=== PATIENT | female | born 1975 | race African-American/Black ===

== ENCOUNTER 2022-01-16 15:14 | Emergency (ER) | payer BC, SELFPAY ==
[2022-01-16 15:25] VITALS: BP 127/97; PULSE 89; RESP 19; TEMP 36.9; O2SAT 95; BMI 40.2
--- NOTE | 2022-01-16 15:38 | HMH.EDUTC ---
[facility] [place] Disposition Clinical Impression: COVID, Bronchitis Disposition: Home, Self-Care Condition on Discharge: Good Instructions: DI for COVID-19 (Suspected or Confirmed ), DI for Acute Bronchitis Additional Instructions: Start antibiotic today. Be sure to complete entire prescription even if feeling better Tylenol and ibuprofen as needed for pain or fever Humidifier/vaporizer/hot steamy shower Follow-up with primary care tomorrow. Follow-up immediately in the ER of the [facility] for new or worsening symptoms or no noticeable improvement over the next 48-72 hours. Stop smoking Inhaler every 4-6 hours as needed. Should help open airways improved cough, wheezing, shortness of breath Brice Deshpande will not cause drowsiness to use at bedtime to help stop cough so that she can get some sleep Start steroids today. Helps with inflammation therefore coughing and wheezing. Follow directions on package. Prescriptions: Albuterol Sulfate [Albuterol Sulfate Hfa] 1 puff IH Q6 PRN 14 Days #1 each PRN Reason: Wheezing Transmission Status: [facility] Benzonatate [Benzonatate 100mg cap] 100 mg PO BID PRN 7 Days #14 cap PRN Reason: Cough Transmission Status: Pending to [facility] predniSONE [Prednisone 20mg Tab] 20 mg PO BID #10 tab Transmission Status: Pending to [facility] Azithromycin [Zithromax 250mg tab] 250 mg PO DIRECTED #6 tab Transmission Status: Pending to [facility] Referrals: Provider,Referral, MD [Primary Care Provider] - Time of Disposition: 15:45 Medical Decision Making - Benito Inquiry Pt receiving controlled substance: No Vital Signs: 01/16/22 15:25 Temperature 98.4 F Temperature Source Oral Pulse Rate [Right Brachial] 89 Respiratory Rate 19 Blood Pressure [Right Arm] 127/97 H Blood Pressure Mean [Right Arm] 107 Blood Pressure Source [Right Arm] Automatic Cuff Blood Pressure Position [Right Arm] Sitting 02 Sat by Pulse Oximetry 95 Oxygen Delivery Method Room Air [facility] [place] HPI - General Chief complaint: Urgent Treatment Center Stated complaint: covid pos 01/09/22 cough and HUANG, dizzy Time Seen by Provider: 01/16/22 15:38 Mode of Arrival: Ambulatory Source of Information: Patient Limitations: No Limitations Description of Symptoms (Recalled from Triage Doc. by RN): PATIENT REPORTS SHE TESTED POSITIVE FOR COVID ON MONDAY. SHE STATES SHE STARTED FEELING BETTER, BUT STARTED FEELING BAD AGAIN YESTERDAY HEENT Symptoms (Recalled from RN notes): No Resp Symptoms (Recalled from RN notes): No Skin Symptoms (Recalled from RN notes): No MS Symptoms (Recalled from RN notes): No Functional Status (Recalled from RN notes): WNL - History of Present Illness Provider Complaint: 46 yr old female presents for huang,body aches,chills and cough. pt states she was coughing up clear sputum but it is now thick yellow sputum. pt states she tested positive for covid and improved but over the last 2 days symptoms have worsened - Related Data Previous Rx's Medication Instructions Recorded Albuterol Sulfate [Albuterol 1 puff IH Q6 PRN 14 Days #1 each 01/16/22 Sulfate Hfa] Azithromycin [Zithromax 250mg 250 mg PO DIRECTED #6 tab 01/16/22 tab] Benzonatate [Benzonatate 100mg 100 mg PO BID PRN 7 Days #14 cap 01/16/22 cap] predniSONE [Prednisone 20mg 20 mg PO BID #10 tab 01/16/22 Tab] Allergies Allergy/AdvReac Type Severity Reaction Status Date / Time Penicillins Allergy Verified 01/16/22 15:36 - Worker's Comp Is this a Worker's Comp case?: No H History - Hepatitis A Screen Attestation statement:: This patient has been screened for Hepatitis A risk factors. I have reviewed the patient's past medical history: Yes ROS Obtained: Yes Systems reviewed as appropriate & no additional complaints - Constitutional Constitutional: Reports system reviewed and no additional complaints, except as docu, Denies fever(s) - Eyes
[2022-01-16 15:44] VITALS: BP 127/97; PULSE 89; RESP 19; TEMP 36.9; O2SAT 95
== END 2022-01-16 15:50 | disposition home or self-care (01) ==
PROVIDERS: Emergency Provider Emergency Medicine
DX: U07.1 COVID-19 (principal); J40 Bronchitis, not specified as acute or chronic
CPT/HCPCS: 99212; G0463

== ENCOUNTER 2022-04-01 21:27 | Emergency (ER) | payer BC, SELFPAY ==
--- NOTE | 2022-04-01 21:41 | ECG_ITS ---
APPROVED REPORT Exam: Resting ECG HR:88 bpm ECG Measurements Heart Rate 88 AXES NE 212 P 70 QRSd 86 QRS 15 QT 340 T 45 QTc 386 Conclusion SINUS RHYTHM WITH FIRST DEGREE AV BLOCK SEPTAL MYOCARDIAL INFARCTION , PROBABLY OLD [40+ ms Q WAVE IN V1/V2] ABNORMAL ECG UNCONFIRMED REPORT Electronically signed by : Ankur Estrada MD 04/02/2022 06:56:13
[2022-04-01 21:50] VITALS: BMI 42.0
[2022-04-01 21:51] VITALS: BP 183/100; PULSE 88; RESP 18; TEMP 36.4; O2SAT 100; BMI 42.0
--- NOTE | 2022-04-01 22:13 | PC.NURSE ---
verbal orders fr4om for pepcid and reglan IVP, orders placed
[2022-04-01 22:16] VITALS: BP 163/83; PULSE 88; O2SAT 100
--- NOTE | 2022-04-01 22:18 | CT_ITS ---
PROCEDURE INFORMATION: Exam: CT Abdomen And Pelvis Without Contrast Exam date and time: 04/01/2022 10:28 PM Age: 46 years old Clinical indication: Abdominal pain; Flank; Right lower quadrant (rlq); Additional info: Abdominal pain / flank pain right side TECHNIQUE: Imaging protocol: Computed tomography of the abdomen and pelvis without contrast. Radiation optimization: All CT scans at this facility use at least one of these dose optimization techniques: automated exposure control; mA and/or kV adjustment per patient size (includes targeted exams where dose is matched to clinical indication); or iterative reconstruction. COMPARISON: No relevant prior studies available. FINDINGS: Liver: Normal. No mass. Gallbladder and bile ducts: Normal. No calcified stones. No ductal dilation. Pancreas: Normal. No ductal dilation. Spleen: Normal. No splenomegaly. Adrenal glands: Normal. No mass. Kidneys and ureters: Punctate non-obstructing left renal stone. No hydronephrosis. Stomach and bowel: Unremarkable. No obstruction. No mucosal thickening. Appendix: No evidence of appendicitis. Intraperitoneal space: Unremarkable. No free air. No significant fluid collection. Vasculature: Unremarkable. No abdominal aortic aneurysm. Lymph nodes: Unremarkable. No enlarged lymph nodes. Urinary bladder: Unremarkable as visualized. Reproductive: Unremarkable as visualized. Bones/joints: Unremarkable. No acute fracture. Soft tissues: Unremarkable. IMPRESSION: No acute findings.
[2022-04-01 22:24] LABS: Microscopic, Urine URINE MICROSCOPIC (MICROSCOPIC)
[2022-04-01 22:25] LABS: Basophils # 0.1 K/mm3 (0-0.2); Basophils % 1.3 % (0.1-2.0); Eosinophils # 0.2 K/mm3 (0.0-0.4); Eosinophils % 1.8 % (0.1-12.0); Hemoglobin 13.3 g/dL (12.2-16.2); Lymphocytes # 1.8 K/mm3 (0.7-4.5); Lymphocytes % 16.6 % (10-50); Mean Corpuscular HGB Conc 32.6 g/dL (31.8-35.4); Mean Corpuscular Hemoglobin 29.2 pg (27.0-31.2); Mean Corpuscular Volume 89.7 fl (81-99); Mean Platelet Volume 7.4 fl (7.4-10.4); Monocytes # 0.3 K/mm3 (0.1-1.0); Monocytes % 2.9 % (1.7-9.3); Neutrophils # 8.2 K/mm3 (1.8-7.8); Neutrophils % 77.4 % (37.0-80.0); Platelet Count 396 K/mm3 (142-424); Red Blood Count 4.57 M/mm3 (4.20-5.40); White Blood Count 10.5 K/mm3 (4.8-10.8)
[2022-04-01 22:26] LABS: Appearance,Urine CLEAR (Clear); Bilirubin,Urine Negative (Negative); Blood, Urine Negative (Negative); Color,Urine YELLOW (Yellow); Glucose,Urine (UA) Negative (Negative); Ketones,Urine TRACE (Negative); Leukocyte Esterase,Urine Negative (Negative); Nitrate,Urine Negative (Negative); PH,Urine 7.5 (5.0-8.5); Protein,Urine Negative (Negative); Specific Gravity, Urine 1.015 (1.005-1.030)
--- NOTE | 2022-04-01 22:30 | PC.NURSE ---
d/t pt's 22g PIV to MD RAYSHAWN ok to change order to CT A/P wo contrast. Radiology will change order.
[2022-04-01 22:31] LABS: Alanine Aminotransferase 159 U/L (12-78); Albumin Level 4.2 g/dl (3.5-5.0); Albumin/Globulin Ratio 1.2 (1.1-1.8); Alkaline Phosphatase 128 U/L (38-126); Amylase 104 U/L (30-110); Anion Gap 13.8 mEq/L (5-15); Aspartate Amino Transferase 205 U/L (14-36); Bilirubin,Total 1.1 mg/dl (0.2-1.3); Blood Urea Nitrogen 12 mg/dl (7-17); Calcium 9.2 mg/dl (8.4-10.2); Carbon Dioxide 29 mmol/L (22.0-30.0); Chloride 96 mmol/L (98-107); Creatinine Clearance Estimated 64 mL/min (50-200); Estimated Glomerular Filt Rate 78 ml/min (>60); GFR (African American) 94 ML/MIN (>60); Globulin 3.4 g/dL (1.3-3.2); Glucose 134 mg/dl (74-100); Lipase 368 U/L (23-300); Potassium 3.8 mmoL/L (3.5-5.1); Sodium 135 mmol/L (136-145); Total Protein,Serum 7.6 g/dl (6.3-8.2)
[2022-04-01 22:35] LABS: Bacteria,Urine Trace /lpf; Mucus,Urine 1+ /lpf; Squamous Epithelial Cell,Urine Occasional #/hpf (0-5); WBC,Urine Occasional #/hpf (0-3)
[2022-04-01 22:38] LABS: C-Reactive Protein 13.2 mg/L (0-4)
[2022-04-01 22:51] LABS: Procalcitonin 0.054 ng/mL (0.0-2.0)
[2022-04-01 23:16] LABS: Erythrocyte Sedimentation Rate 40 mm/hr (0-20)
--- NOTE | 2022-04-01 23:23 | HMH.EDABDPAI ---
Discharge Plan Disposition Patient Disposition: Home, Self-Care Chief Complaint: Abdominal Pain Prescriptions Prescriptions: No Action No Known Home Medications Referrals Follow up/Referrals: Provider,Referral, [Primary Care Provider] - See instructions Clinical Impressions Clinical Impression: Abdominal pain Instructions Patient Instructions: DI for Acute Abdominal Pain Discharge ED Provider: Marcelino Carrillo Abdominal Pain HPI General Chief Complaint: Abdominal Pain Stated Complaint: back pain, VA Time Seen by Provider: 04/01/22 22:05 Mode of Arrival: Wheelchair Source of Information: Patient, Spouse and Medical Record Limitations: No Limitations Description of Symptoms (Recalled from ER Triage Doc. by RN): Pt c/o upper epigastric pain that radiates into her back with nausea. States it has been going on since Monday and she has been unable to eat. States that the pain got better throughout the week but tonight at 1900 on the ride home she got severely nauseaus with abdominal pain and back pain. History of Present Illness HPI narrative: acute upper abd pain with rad to back - has vomiting - has had sx since earlier in week MD complaint: abdominal pain Onset (ago): day(s) Consistency: intermittent Location: RUQ Severity: moderate Quality: sharp Radiation: RUQ Associated symptoms: nausea and vomiting Related Data Home Medications Medication Instructions Recorded Confirmed No Known Home Medications 04/01/22 04/01/22 Allergies Allergy/AdvReac Type Severity Reaction Status Date / Time Penicillins Allergy Verified 01/16/22 15:36 PFSH PFSH Surgical History (Updated 04/01/22 @ 21:56 by Ana Cristina Ya RN) Hx of tubal ligation Social History (Updated 04/01/22 @ 21:57 by Ana Cristina Ya RN) Smoking Status: Never smoker alcohol intake: never current occupational status: employed Travel in the last 8 weeks: None ROS Obtained: Yes All systems reviewed & no additional complaints except as documented Physical Exam General General appearance: alert Head Head exam: normocephalic Eye Eye exam: Present PERRL and EOMI; Absent scleral icterus ENT ENT exam: Present mucous membranes moist Neck Neck exam: Present trachea midline Respiratory Respiratory exam: Present normal lung sounds bilaterally; Absent respiratory distress Cardiovascular Cardiovascular exam: Present regular rate Abdominal Exam Abdominal exam: Present soft, tenderness and Del [place]'s sign Abdominal tenderness: Present RUQ and moderate Extremities Exam Extremities exam: Present full ROM Neurological Exam Neurological exam: Present alert, oriented X3 and CN II-XII intact Psychiatric Psychiatric exam: Present normal affect Skin Skin exam: Absent rash Medical Decision Making Medical Records Medical records reviewed: Yes I reviewed the patient's medical records. Benito Inquiry Pt receiving controlled substance: No Vital Signs: 04/01/22 21:51 04/01/22 22:16 Temperature 97.6 F Temperature Source Oral Pulse Rate 88 Pulse Rate [Apical] 88 Respiratory Rate 18 Blood Pressure 163/83 H Blood Pressure [Right Arm] 183/100 H Blood Pressure Mean 109 Blood Pressure Mean [Right Arm] 127 Blood Pressure Source [Right Arm] Automatic Cuff Blood Pressure Position [Right Arm] Sitting 02 Sat by Pulse Oximetry 100 100 Oxygen Delivery Method Room Air Room Air Lab Data Lab results reviewed: Yes I reviewed the patient's lab results. Lab Results 04/01/22 22:05: WBC 10.5, RBC 4.57, Hgb 13.3, Hct 41.0, MCV 89.7, MCH 29.2, MCHC 32.6, RDW 14.0, Plt Count 396, MPV 7.4, Neut % (Auto) 77.4, Lymph % (Auto) 16.6, [place] % (Auto) 2.9, Eos % (Auto) 1.8, Baso % (Auto) 1.3, Neut # (Auto) 8.2 H, Lymph # (Auto) 1.8, [place] # (Auto) 0.3, Eos # (Auto) 0.2, Baso # (Auto) 0.1 04/01/22 22:05: Sodium 135 L, Potassium 3.8, Chloride 96 L, Carbon Dioxide 29, Anion Gap 13.8, BUN 12, Creatinine 0.80, Estimated Creat Clear 64, Est
[2022-04-01 23:51] VITALS: BP 159/78; PULSE 78; RESP 18; TEMP 36.6; O2SAT 98
== END 2022-04-01 23:59 | disposition home or self-care (01) ==
PROVIDERS: Emergency Provider Emergency Medicine
DX: R10.9 Unspecified abdominal pain (principal); M54.9 Dorsalgia, unspecified; Z88.0 Allergy status to penicillin
CPT/HCPCS: 74176; 80053; 81001; 82150; 83690; 84145; 85025; 85651; 86140; 93005; 96374; 96375; 99284

== ENCOUNTER → 2022-04-12 08:31 | Outpatient (CLI) | payer BC, SELFPAY ==
--- NOTE | 2022-04-12 08:32 | US_ITS ---
FINAL REPORT CLINICAL HISTORY: right upper quadrant pain FINDINGS: Ultrasound images of the right upper quadrant were obtained. The liver parenchyma is normal in echogenicity. The gallbladder is well visualized and the wall appears normal. There are multiple gallstones. The common duct is normal. Limited images of the right kidney are unremarkable. IMPRESSION: Cholelithiasis. Reviewed, Interpreted and Dictated by Bar Gann III, MD Transcribed by Mook Santana Authenticated and [facility]
== END ==
PROVIDERS: PCP Nurse Practitioner Family; Visit Provider Nurse Practitioner Family
DX: R10.11 Right upper quadrant pain (principal)
CPT/HCPCS: 76705

== ENCOUNTER → 2022-05-03 13:18 | Outpatient (CLI) | payer BC, SELFPAY ==
[2022-05-03 14:11] LABS: Basophils # 0.1 K/mm3 (0-0.2); Basophils % 1.7 % (0.1-2.0); Eosinophils # 0.2 K/mm3 (0.0-0.4); Eosinophils % 2.6 % (0.1-12.0); Hematocrit 38.5 % (37.0-47.0); Hemoglobin 12.4 g/dL (12.2-16.2); Lymphocytes # 1.9 K/mm3 (0.7-4.5); Lymphocytes % 28.1 % (10-50); Mean Corpuscular HGB Conc 32.2 g/dL (31.8-35.4); Mean Corpuscular Hemoglobin 29.3 pg (27.0-31.2); Mean Corpuscular Volume 90.9 fl (81-99); Mean Platelet Volume 7.4 fl (7.4-10.4); Monocytes # 0.2 K/mm3 (0.1-1.0); Monocytes % 3.5 % (1.7-9.3); Neutrophils # 4.4 K/mm3 (1.8-7.8); Neutrophils % 64.2 % (37.0-80.0); Platelet Count 339 K/mm3 (142-424); Red Blood Count 4.24 M/mm3 (4.20-5.40); Red Cell Distribution Width 13.6 % (11.5-17.5); White Blood Count 6.9 K/mm3 (4.8-10.8)
[2022-05-03 15:13] LABS: Alanine Aminotransferase 18 U/L (12-78); Albumin Level 3.7 g/dl (3.5-5.0); Albumin/Globulin Ratio 1.3 (1.1-1.8); Alkaline Phosphatase 77 U/L (38-126); Amylase 76 U/L (30-110); Aspartate Amino Transferase 27 U/L (14-36); Bilirubin,Total 0.2 mg/dl (0.2-1.3); Blood Urea Nitrogen 10 mg/dl (7-17); Carbon Dioxide 29 mmol/L (22.0-30.0); Chloride 100 mmol/L (98-107); Estimated Glomerular Filt Rate 91 ml/min (>60); GFR (African American) 110 ML/MIN (>60); Globulin 2.8 g/dL (1.3-3.2); Glucose 115 mg/dl (74-100); Lipase 85 U/L (23-300); Sodium 138 mmol/L (136-145); Total Protein,Serum 6.5 g/dl (6.3-8.2)
== END ==
PROVIDERS: PCP Emergency Medicine; Visit Provider Surgery
DX: R10.11 Right upper quadrant pain (principal)
CPT/HCPCS: 36415; 80053; 82150; 83690; 85025

== ENCOUNTER 2022-05-09 06:02 | Day surgery (SDC) | payer BC, SELFPAY ==
[2022-04-27 14:46] VITALS: BMI 23.4
--- NOTE | 2022-05-05 13:21 | SUR.PREOP ---
Patient notified of time change and agreed to come in at 6am
[2022-05-09] VITALS (11 sets, daily range): BP systolic 140–159; BP diastolic 76–96; PULSE 86–110; RESP 16–99; TEMP 36.3–43; O2SAT 97–100
[2022-05-09 06:26] LABS: Urine Pregnancy, HCG Qual. Negative (Negative)
--- NOTE | 2022-05-09 08:27 | XR_ITS ---
FINAL REPORT CLINICAL HISTORY: CHOLANGIOGRAM IN OR fluoro time: .16 FINDINGS: Fluoroscopic guidance was provided for the operating services. A single spot film was provided. 16 seconds of fluoroscopy time was utilized. IMPRESSION: 16 seconds of fluoroscopy time. Reviewed, Interpreted and Dictated by Bar Gann III, MD Transcribed by Mook Santana Authenticated and [facility]
--- NOTE | 2022-05-09 08:56 | EXP.OP.NOTE ---
Date of procedure: 05/09/22 Pre-op Diagnosis:: Symptomatic gallstones Post-op Diagnosis:: Same Procedure performed:: Laparoscopic cholecystectomy with intraoperative cholangiogram Surgeon:: Bar Hanson MD [employer]:: Other Anesthesia: GETA Estimated blood loss (mL): 20 Clinical Note:: Patient is a very pleasant 46-year-old female referred by Dr. Carrillo's office for gallbladder.? Retrospectively she has had some symptoms occurring throughout this year consistent with biliary colic which have usually been self-limited.? She had an episode on 04/01/2022 at which time she had developed nausea and vomiting while in [place].? This was followed with severe epigastric pain radiating around to the bilateral upper quadrants and into her right back.? Patient had tried to take some omeprazole and apple cider vinegar at home prior to presenting to the emergency department which is usually relieved her symptoms but these did not.? She states that this was quite severe resembling labor pain.? In the emergency department she underwent an evaluation including blood work and CT scan.? CT scan revealed no acute findings.? Blood work was significant for AST 205, ALT 159, alkaline phosphatase 128, lipase 368, amylase normal.? Gallbladder was suspected and she was able to be managed as an outpatient.? She underwent outpatient ultrasound which reveals cholelithiasis .? Common bile duct is normal.? Of note, for the past few months patient has had occasional development of itching rash.? She develops redness near the axilla and upper extremities.? She has done Internet search to attempt to correlate this with her gallbladder and had come across diagnosis of sclerosing cholangitis.? I did ask her about history or symptoms of inflammatory bowel disease.? She has undergone a colonoscopy relatively recently for some bowel issues but no known diagnosis of any inflammatory bowel disease. Patient was seen and examined in the office.I discussed the options with her.? I did feel that proceeding with cholecystectomy would be warranted.? Likely consider cholangiogram given her associated symptoms and findings on liver function tests.? I did discuss with her the diagnosis of sclerosing cholangitis.? Ultimately gastroenterology evaluation might be reasonable, particularly if her symptoms persist. Of note, preoperative recheck of liver function test showed normalization. Operative findings:: She had a somewhat distended gallbladder with small gallstones. There was some fatty infiltration of the liver. Cholangiogram unremarkable preliminarily. Operative note:: Patient was taken to the operating room. She was given preoperative intravenous antibiotics. In the operating room she was placed in a supine position. General anesthesia was induced via endotracheal tube. Abdomen was prepped and draped in the standard surgical fashion. Subumbilical skin incision was made and while performing abdominal wall lift Veress needle was inserted. CO2 pneumoperitoneum was achieved to 15 mmHg. 11 mm optical trocar was inserted at the umbilicus. She was positioned in reverse Trendelenburg left side down. A couple of 5 mm trochars were inserted in the right upper abdomen. 10 mm trocar was inserted in the epigastrium. There was some mild fatty infiltration of the liver. Gallbladder was grasped retracted anteriorly over the dome of the liver. Infundibulum/Hunt's pouch of the gallbladder was retracted anterior laterally. Blunt dissection was carried out at the neck of the gallbladder bluntly incising the visceral peritoneum. Cystic duct and cystic artery were clearly identified and isolated. Cystic duct was clipped proximal to the gallbladder. Through a 1 to 2 mm incision in the right subcostal area the taut cholangiocatheter introduced was inserted. Cholangiocatheter was inserted through the introducer and small ductotomy was made in the cystic duct. Cholangiocatheter was inserted into the cystic duct and sec
--- NOTE | 2022-05-09 09:05 | EXP.ANES.CKL ---
[facility] Medical History (Updated 05/09/22 @ 06:26 by Julissa Orozco RN) Allergies Gallbladder disease History of COVID-19 History of gastroesophageal reflux (GERD) Sinus headache Urinary tract infection Surgical History Hx of tubal ligation Family History Other Family history of breast cancer in mother Family history of cancer Family history of colon cancer in father Family history of diabetes mellitus type II Family history of hypertension Family history of myocardial infarction Family history of sickle cell trait Family history of stroke Social History Smoking Status: Never smoker alcohol intake: never substance use type: denies use current occupational status: employed Travel in the last 8 weeks: None [facility] Anesthesia Checklist Patient Identification Patient Identification: Arm Band and Family Structural Data Admitted From: Direct Admit Planned Operative Procedure/s: lap chichi Consent for Planned Operative Procedure(s) Verified: Yes Verified Documents: Surgical Consent NPO Status Verified Time NPO: 00:00 Additional verifications Patient : No Anesthesia Reactions: No Hx Blood Transfusions: No Blood Transfusion Reaction: No Cephalosporin Allergy: No Airway Assessment C-Spine Mobility Assessed: Yes TMJ Mobility Assessed: Yes Dentition: Poor Dentition Neurological Assessment Level of Consciousness: Awake, Alert, Appropriate and Follows Commands Hx Seizures: No Numbness or tingling in extremities: No Genitourinary Assessment 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
--- NOTE | 2022-05-09 09:08 | P.PNANES_ITS ---
[facility] Anesthesia Record Part I Anesthesia Record I Intake, IV Amount: 850 Estimated blood loss (mL): 3 Urine output (mL): 0 Blood Products used (#): none Blood Pressure: 146/88 SaO2: 100 Pulse Rate: 104 Respiratory Rate: 16 Temperature: 98.8 F Patient is:: Drowsy and Stable Stable to PACU at:: 09:01
[2022-05-10 07:45] VITALS: BP 159/89; PULSE 109; TEMP 36.3
--- NOTE | 2022-05-10 07:45 | P.PNANES_ITS ---
[facility] Anesthesia Record Part II Anesthesia Record Part II Discharge Time: 09:28 Destination: Surgical Day Care (OP Surgery) PACU nurse assessment reviewed?: Yes Patient Condition:: Good Anesthesia Complications:: None Swallowing reflex intact?: Yes Cyanosis?: No Blood Pressure: 159/89 Pulse Rate: 109 Temperature: 97.4 F Mental Status: Alert & Oriented Pain level:: 6 Nausea and/or vomitting:: None Intake, IV Amount: 0
== END 2022-05-09 10:41 | disposition home or self-care (01) ==
PROVIDERS: PCP Nurse Practitioner Family; Visit Provider Surgery
PROC: 0FT44ZZ Resection of Gallbladder, Percutaneous Endoscopic Approach (ICD-10-PCS; CPT 47562; principal; 2022-05-09 07:30)
DX: K80.10 Calculus of gallbladder with chronic cholecystitis without obstruction (principal); Z79.899 Other long term (current) drug therapy
CPT/HCPCS: 47563; 74018; 76000; 81025; 88304; 96374; J2405; Q9967

== ENCOUNTER 2022-06-27 16:07 | Emergency (ER) | payer BC, SELFPAY ==
[2022-06-27 19:30] VITALS: BP 0/0; PULSE 0; RESP 0; TEMP -17.7; TEMP 0
== END 2022-06-27 19:32 | disposition home or self-care (01) ==
LOC: UTC 16:10
PROVIDERS: Emergency Provider Nurse Practitioner; PCP Emergency Medicine
DX: Z53.21 Procedure and treatment not carried out due to patient leaving prior to being seen by health care provider (principal)

== ENCOUNTER → 2022-10-06 06:22 | Outpatient (CLI) | payer BC, SELFPAY | PROVIDERS: PCP Nurse Practitioner Family; Visit Provider Nurse Practitioner Family | DX: R10.9 Unspecified abdominal pain (principal) ==

== ENCOUNTER → 2022-10-06 09:12 | Outpatient (CLI) | payer BC, SELFPAY ==
[2022-10-06 16:25] LABS: Basophils # 0.1 K/mm3 (0-0.2); Eosinophils # 0.1 K/mm3 (0.0-0.4); Eosinophils % 1.9 % (0.1-12.0); Hematocrit 40.9 % (37.0-47.0); Hemoglobin 12.9 g/dL (12.2-16.2); Lymphocytes # 2.3 K/mm3 (0.7-4.5); Lymphocytes % 30.5 % (10-50); Mean Corpuscular HGB Conc 31.5 g/dL (31.8-35.4); Mean Corpuscular Hemoglobin 28.1 pg (27.0-31.2); Mean Corpuscular Volume 89.2 fl (81-99); Mean Platelet Volume 9.2 fl (7.4-10.4); Monocytes # 0.5 K/mm3 (0.1-1.0); Monocytes % 6.2 % (1.7-9.3); Neutrophils # 4.5 K/mm3 (1.8-7.8); Neutrophils % 60.4 % (37.0-80.0); Platelet Count 383 K/mm3 (142-424); Red Blood Count 4.58 M/mm3 (4.20-5.40); Red Cell Distribution Width 14.2 % (11.5-17.5); White Blood Count 7.5 K/mm3 (4.8-10.8)
[2022-10-06 16:47] LABS: Hemoglobin A1C 5.5 % (4.0-6.0)
[2022-10-06 16:54] LABS: Alanine Aminotransferase 16 U/L (12-78); Albumin Level 4.2 g/dl (3.5-5.0); Albumin/Globulin Ratio 1.4 (1.1-1.8); Alkaline Phosphatase 75 U/L (38-126); Anion Gap 11.8 mEq/L (5-15); Aspartate Amino Transferase 23 U/L (14-36); Bilirubin,Total 0.4 mg/dl (0.2-1.3); Blood Urea Nitrogen 13 mg/dl (7-17); Calcium 9.2 mg/dl (8.4-10.2); Carbon Dioxide 25 mmol/L (22.0-30.0); Chloride 104 mmol/L (98-107); Chol/HDL Ratio 3.6 (1-3.5); Cholesterol 200 mg/dl (140-200); Estimated Glomerular Filt Rate 78 ml/min (>60); GFR (African American) 94 ML/MIN (>60); Globulin 3.1 g/dL (1.3-3.2); Glucose 90 mg/dl (74-100); HDL Cholesterol 56 mg/dl (40-60); Potassium 4.8 mmoL/L (3.5-5.1); Sodium 136 mmol/L (136-145); Total Protein,Serum 7.3 g/dl (6.3-8.2); Triglycerides 86 mg/dl (30-150); VLDL Cholesterol 17 mg/dL (0-40)
[2022-10-06 17:06] LABS: Direct LDL Cholesterol 115.69 mg/dL (100-129)
== END ==
PROVIDERS: PCP Nurse Practitioner Family; Visit Provider Nurse Practitioner Family
DX: R10.9 Unspecified abdominal pain (principal)
CPT/HCPCS: 80053; 80061; 83036; 84443; 85025

== ENCOUNTER → 2022-12-06 14:30 | Outpatient (CLI) | payer BC, SELFPAY | PROVIDERS: PCP Nurse Practitioner Family; Visit Provider Nurse Practitioner Family | DX: N39.0 Urinary tract infection, site not specified (principal); B96.29 Other Escherichia coli [E. coli] as the cause of diseases classified elsewhere | CPT/HCPCS: 87086; 87088; 87186 ==

== ENCOUNTER → 2023-04-17 14:50 | Outpatient (CLI) | payer BC, SELFPAY | PROVIDERS: PCP Student in an Organized Health Care Education/Training Program; Visit Provider Student in an Organized Health Care Education/Training Program | DX: R39.9 Unspecified symptoms and signs involving the genitourinary system (principal) | CPT/HCPCS: 87086 ==

== ENCOUNTER 2023-10-23 11:42 | Outpatient (CLI) | payer BC, SELFPAY ==
[2023-10-23 18:23] LABS: Basophils # 0.1 K/mm3 (0-0.2); Basophils % 1.3 % (0.1-2.0); Eosinophils # 0.2 K/mm3 (0.0-0.4); Eosinophils % 2.5 % (0.1-12.0); Hematocrit 42.5 % (37.0-47.0); Hemoglobin 13.6 g/dL (12.2-16.2); Lymphocytes # 2.4 K/mm3 (0.7-4.5); Lymphocytes % 29.9 % (10-50); Mean Corpuscular HGB Conc 31.9 g/dL (31.8-35.4); Mean Corpuscular Volume 90.9 fl (81-99); Mean Platelet Volume 8.4 fl (7.4-10.4); Monocytes # 0.4 K/mm3 (0.1-1.0); Monocytes % 4.4 % (1.7-9.3); Neutrophils # 4.9 K/mm3 (1.8-7.8); Neutrophils % 61.9 % (37.0-80.0); Platelet Count 339 K/mm3 (142-424); Red Blood Count 4.67 M/mm3 (4.20-5.40); Red Cell Distribution Width 13.9 % (11.5-17.5)
[2023-10-23 18:53] LABS: Alanine Aminotransferase 23 U/L (12-78); Albumin Level 4.3 g/dl (3.5-5.0); Albumin/Globulin Ratio 1.3 (1.1-1.8); Alkaline Phosphatase 91 U/L (38-126); Anion Gap 14.5 mEq/L (5-15); Aspartate Amino Transferase 29 U/L (14-36); Bilirubin,Total 0.4 mg/dl (0.2-1.3); Blood Urea Nitrogen 8 mg/dl (7-17); Carbon Dioxide 23 mmol/L (22.0-30.0); Chloride 105 mmol/L (98-107); Chol/HDL Ratio 2.5 (1-3.5); Cholesterol 222 mg/dl (140-200); Estimated Glomerular Filt Rate 90 ml/min (>60); GFR (African American) 109 ML/MIN (>60); Globulin 3.2 g/dL (1.3-3.2); Glucose 107 mg/dl (74-100); HDL Cholesterol 90 mg/dl (40-60); Potassium 4.5 mmoL/L (3.5-5.1); Sodium 138 mmol/L (136-145); Total Protein,Serum 7.5 g/dl (6.3-8.2); Triglycerides 122 mg/dl (30-150); VLDL Cholesterol 24 mg/dL (0-40)
[2023-10-23 19:04] LABS: C-Reactive Protein 26.7 mg/L (0-4); Direct LDL Cholesterol 104.14 mg/dL (100-129)
[2023-10-23 19:14] LABS: Erythrocyte Sedimentation Rate 76 mm/hr (0-20)
[2023-10-23 19:15] LABS: 25-OH Vitamin D, Total 26.3 ng/mL (30-100)
[2023-10-23 19:28] LABS: Thyroid Stimulating Hormone 0.65 uIU/mL (0.465-4.68)
[2023-10-23 19:47] LABS: Vitamin B12 788 pg/mL (239-931)
[2023-10-23 20:24] LABS: Iron 111 ug/dL (37-170)
[2023-10-23 20:35] LABS: Total Iron Binding Capacity 289 ug/dL (265-497)
[2023-10-23 21:01] LABS: Ferritin 25.8 ng/ml (6.24-137)
[2023-10-25 14:13] LABS: Anti-Centromere B Antibodies <0.2 AI (0.0-0.9); Anti-Cyclic Citrullinated Pept 6 units (0-19); Anti-DNA (DS) Ab Qn <1 IU/mL (0-9); Anti-Jo-1 <0.2 AI (0.0-0.9); Anti-Smith Antibody <0.2 AI (0.0-0.9); Antichromatin Antibodies <0.2 AI (0.0-0.9); Antiscleroderma-70 Antibodies <0.2 AI (0.0-0.9); RNP Antibodies <0.2 AI (0.0-0.9); Sjogren's Anti-SS-A 0.2 AI (0.0-0.9); Sjogren's Anti-SS-B <0.2 AI (0.0-0.9)
== END 2023-10-23 23:59 | disposition home or self-care (01) ==
LOC: LAB.DROPOF 10-24 11:42
PROVIDERS: PCP Physician Assistant; Visit Provider Physician Assistant
DX: R60.9 Edema, unspecified (principal); E55.9 Vitamin D deficiency, unspecified; Z68.41 Body mass index [BMI] 40.0-44.9, adult
CPT/HCPCS: 80053; 80061; 82306; 82607; 82728; 83540; 83550; 84443; 85025; 85651; 86140; 86200; 86225; 86235; 86431

== ENCOUNTER 2024-01-24 16:18 | Outpatient (CLI) | payer BC, SELFPAY ==
--- NOTE | 2024-01-24 16:25 | XR_ITS ---
PROCEDURE INFORMATION: Exam: XR Right Foot Exam date and time: 01/24/2024 4:26 PM Age: 48 years old Clinical indication: Pain; Foot; Bilateral; Additional info: Bilateral bunions TECHNIQUE: Imaging protocol: Radiologic exam of the right foot. Views: 3 or more views. Total images: 3 COMPARISON: No relevant prior studies available. FINDINGS: Bones/joints: No evidence of acute fracture or dislocation. Mild hallux valgus deformity. Soft tissues: Soft tissues are within normal limits. IMPRESSION: 1. No evidence of acute fracture or dislocation. 2. Mild hallux valgus deformity.
--- NOTE | 2024-01-24 16:25 | XR_ITS ---
PROCEDURE INFORMATION: Exam: XR Left Foot Exam date and time: 01/24/2024 4:26 PM Age: 48 years old Clinical indication: Pain; Foot; Bilateral; Additional info: Bilateral bunions TECHNIQUE: Imaging protocol: Radiologic exam of the left foot. Views: 3 or more views. Total images: 3 COMPARISON: No relevant prior studies available. FINDINGS: Bones/joints: No evidence of acute fracture or dislocation. Soft tissues: Soft tissues are within normal limits. IMPRESSION: No evidence of acute fracture or dislocation.
== END 2024-01-24 23:59 | disposition home or self-care (01) ==
LOC: RAD 16:21
PROVIDERS: PCP Physician Assistant; Visit Provider Physician Assistant
DX: M21.611 Bunion of right foot (principal); M21.612 Bunion of left foot
CPT/HCPCS: 73630

== ENCOUNTER 2024-02-08 10:14 | Outpatient (CLI) | payer BC, SELFPAY | END 2024-02-08 23:59 | disposition home or self-care (01) | LOC: LAB.DROPOF 02-09 08:22 | PROVIDERS: PCP Student in an Organized Health Care Education/Training Program; Visit Provider Student in an Organized Health Care Education/Training Program | DX: R05.9 Cough, unspecified (principal) | CPT/HCPCS: 87635 ==

== ENCOUNTER 2024-05-07 10:20 | Outpatient (CLI) | payer BC, SELFPAY ==
--- NOTE | 2024-05-07 10:23 | XR_ITS ---
PROCEDURE INFORMATION: Exam: XR Right Calcaneus Exam date and time: 05/07/2024 10:25 AM Age: 48 years old Clinical indication: Pain; Foot; Bilateral; Additional info: Heel pain TECHNIQUE: Imaging protocol: Radiologic exam of the right calcaneus. Views: 2 or more views. COMPARISON: CR XR CALCANEUS RT MIN 2V 05/07/2024 10:25 AM FINDINGS: Bones/joints: There is no evidence of acute fracture.There is no evidence of malalignment or dislocation. Soft tissues: Normal. IMPRESSION: There is no evidence of acute fracture.There is no evidence of malalignment or dislocation.
--- NOTE | 2024-05-07 10:23 | XR_ITS ---
PROCEDURE INFORMATION: Exam: XR Right Ankle Exam date and time: 05/07/2024 10:25 AM Age: 48 years old Clinical indication: Pain; Ankle; Bilateral; Additional info: Ankle pain TECHNIQUE: Imaging protocol: Radiologic exam of the right ankle. Views: 3 or more views. COMPARISON: CR XR ANKLE WT BEARING RT MIN 3V 05/07/2024 10:25 AM FINDINGS: Bones/joints: There is no evidence of acute fracture.There is no evidence of malalignment or dislocation. Osteophyte formation off the dorsal aspect of the talus Soft tissues: Normal. IMPRESSION: There is no evidence of acute fracture.There is no evidence of malalignment or dislocation.
--- NOTE | 2024-05-07 10:23 | XR_ITS ---
PROCEDURE INFORMATION: Exam: XR Left Calcaneus Exam date and time: 05/07/2024 10:25 AM Age: 48 years old Clinical indication: Pain; Foot; Bilateral; Additional info: Heel pain TECHNIQUE: Imaging protocol: Radiologic exam of the left calcaneus. Views: 2 or more views. COMPARISON: CR XR CALCANEUS LT MIN 2V 05/07/2024 10:25 AM FINDINGS: Bones/joints: There is no evidence of acute fracture.There is no evidence of malalignment or dislocation. Soft tissues: Normal. IMPRESSION: There is no evidence of acute fracture.There is no evidence of malalignment or dislocation.
--- NOTE | 2024-05-07 10:23 | XR_ITS ---
PROCEDURE INFORMATION: Exam: XR Left Foot Exam date and time: 05/07/2024 10:25 AM Age: 48 years old Clinical indication: Pain; Foot; Bilateral; Additional info: Foot pain TECHNIQUE: Imaging protocol: Radiologic exam of the left foot. Views: 3 or more views. COMPARISON: CR XR FOOT WT BEARING LT 3V 05/07/2024 10:25 AM FINDINGS: Bones/joints: Mild hallux valgus deformity. There is no evidence of acute fracture.There is no evidence of malalignment or dislocation. Soft tissues: Normal. IMPRESSION: 1. Mild hallux valgus deformity. 2. There is no evidence of acute fracture.There is no evidence of malalignment or dislocation.
--- NOTE | 2024-05-07 10:23 | XR_ITS ---
PROCEDURE INFORMATION: Exam: XR Left Ankle Exam date and time: 05/07/2024 10:25 AM Age: 48 years old Clinical indication: Pain; Ankle; Left; Additional info: Ankle pain TECHNIQUE: Imaging protocol: Radiologic exam of the left ankle. Views: 3 or more views. COMPARISON: CR XR ANKLE WT BEARING LT MIN 3V 05/07/2024 10:25 AM FINDINGS: Bones/joints: There is no evidence of acute fracture.There is no evidence of malalignment or dislocation. Soft tissues: Unremarkable IMPRESSION: There is no evidence of acute fracture.There is no evidence of malalignment or dislocation.
--- NOTE | 2024-05-07 10:23 | XR_ITS ---
PROCEDURE INFORMATION: Exam: XR Right Foot Exam date and time: 05/07/2024 10:25 AM Age: 48 years old Clinical indication: Pain; Foot; Bilateral; Additional info: Foot pain TECHNIQUE: Imaging protocol: Radiologic exam of the right foot. Views: 3 or more views. COMPARISON: CR XR FOOT RT MIN 3V 01/24/2024 4:26 PM FINDINGS: Bones/joints: There is no evidence of acute fracture.There is no evidence of malalignment or dislocation. Soft tissues: Normal. IMPRESSION: There is no evidence of acute fracture.There is no evidence of malalignment or dislocation.
== END 2024-05-07 23:59 | disposition home or self-care (01) ==
LOC: RAD 10:21
PROVIDERS: PCP Physician Assistant; Visit Provider Podiatrist
DX: M79.671 Pain in right foot (principal); M79.672 Pain in left foot; M25.571 Pain in right ankle and joints of right foot; M25.572 Pain in left ankle and joints of left foot
CPT/HCPCS: 73610; 73630; 73650

== ENCOUNTER 2024-06-12 15:48 | Outpatient (CLI) | payer BC, SELFPAY ==
[2024-06-12 18:13] LABS: Adenovirus,PCR Not Detected (NotDetected); Bordetella Pertussis Not Detected (NotDetected); Chlamydophila Pneumoniae, PCR Not Detected (NotDetected); Coronavirus 19, PCR Not Detected (NotDetected); Coronavirus 229E Not Detected (NotDetected); Coronavirus NL63 Not Detected (NotDetected); Coronavirus OC43 Not Detected (NotDetected); Coronovirus HKU1,PCR Not Detected (NotDetected); Human Metapneumovirus Not Detected (NotDetected); Influenza A, PCR Not Detected (NotDetected); Influenza AH1, 2009 Not Detected (NotDetected); Influenza AH1, PCR Not Detected (NotDetected); Influenza AH3,PCR Not Detected (NotDetected); Influenza B, PCR Not Detected (NotDetected); Mycoplasma Pneumoniae, PCR Not Detected (NotDetected); Parainfluenza 1, PCR Not Detected (NotDetected); Parainfluenza 2, PCR Not Detected (NotDetected); Parainfluenza 3, PCR Not Detected (NotDetected); Parainfluenza 4, PCR Not Detected (NotDetected); Respiratory Syncytial Virus Not Detected (NotDetected); Rhinovirus/Enterovirus Not Detected (NotDetected)
== END 2024-06-12 23:59 | disposition home or self-care (01) ==
LOC: LAB.DROPOF 06-13 10:55
PROVIDERS: PCP Nurse Practitioner Family; Visit Provider Nurse Practitioner Family
DX: R09.81 Nasal congestion (principal); R39.9 Unspecified symptoms and signs involving the genitourinary system; J98.8 Other specified respiratory disorders; B97.89 Other viral agents as the cause of diseases classified elsewhere
CPT/HCPCS: 87086; 87633

== ENCOUNTER 2024-06-12 17:00 | Outpatient (RCR) | payer BC, SELFPAY | END 2024-06-12 23:59 | disposition home or self-care (01) | LOC: PT 17:00 | PROVIDERS: Visit Provider Podiatrist | DX: M25.372 Other instability, left ankle (principal); S93.492A Sprain of other ligament of left ankle, initial encounter | CPT/HCPCS: 97110; 97112; 97163; 97530 ==

== ENCOUNTER 2024-10-02 09:37 | Day surgery (SDC) | payer BC, SELFPAY ==
[2024-09-30 16:46] VITALS: BMI 43.0
[2024-10-02 10:22] VITALS: BP 130/104; PULSE 91; RESP 18; TEMP 36.3; O2SAT 97
[2024-10-02 10:27] LABS: Urine Pregnancy, HCG Qual. Negative (Negative)
[2024-10-02] MEDS: LACTATED RINGERS 1000ML 1,000 ML 50 ML IV (10:40)
--- NOTE | 2024-10-02 10:50 | EXP.ANES.CKL ---
[facility] Disclaimer: The information contained in this section may have been updated after the patient was seen, as this information can be updated by other users. Medical History Urinary tract infection History of COVID-19 Sinus headache Gallbladder disease Allergies History of gastroesophageal reflux (GERD) Surgical History History of laparoscopic cholecystectomy Hx of tubal ligation Family History Other Family history of breast cancer in mother Family history of cancer Family history of colon cancer in father Family history of diabetes mellitus type II Family history of hypertension Family history of myocardial infarction Family history of sickle cell trait Family history of stroke Social History Smoking Status: Never smoker alcohol intake: never substance use type: denies use current occupational status: employed Travel in the last 8 weeks: None caffeine: No Have you lived/traveled outside [place] in past 30 days?: No Contact w/someone who lives/traveled outside [place] past 30 days?: No Exposure to someone with infectious disease in past 14 days?: No Do you have a fever (greater than 100.4 F or 38 C)?: No Have you tested positive for COVID-19: No Exposed to someone with COVID-19 in past 14 days?: No Do you have a sore throat?: No Do you have a cough?: No Do you have any weakness?: No Are you experiencing any nausea/vomitting?: No Do you have any diarrhea?: No Are you experiencing any unusual bleeding?: No Do you have any muscle aches/pain?: No Do you have any abdominal pain?: No Are you experiencing loss of taste or smell?: No [facility] Anesthesia Checklist Patient Identification Patient Identification: Arm Band and Verbal (Name & ) Structural Data Admitted From: Home Planned Operative Procedure/s: colonscopy Consent for Planned Operative Procedure(s) Verified: Yes Verified Documents: Surgical Consent and History and Physical NPO Status Verified Time NPO: 00:00 Additional verifications Patient : No Anesthesia Reactions: No Hx Blood Transfusions: No Blood Transfusion Reaction: No Airway Assessment Mallampati Score:: Class II Dentition: Good Dentition Neurological Assessment Level of Consciousness: Awake, Alert and Appropriate Hx Seizures: No Anesthesia Plan Anesthesia Risk discussed: Yes Anesthesia Plan: Verified ASA Class: II Anesthesia Type: MAC
--- NOTE | 2024-10-02 11:13 | EXP.HP ---
History of Present Illness *Admission Date: 10/02/24 *Reason for visit:: Personal history of adenomatous colon polyps *History of present illness: Mrs. Montelongo is a 49-year-old female who is here for surveillance colonoscopy secondary to a personal history of adenomatous colon polyp. The examination is deemed medically necessary for surveillance colonoscopy. The patient has been seen, interviewed and examined prior to the procedure by both myself and the anesthesia provider. [facility] Disclaimer: The information contained in this section may have been updated after the patient was seen, as this information can be updated by other users. Medical History Urinary tract infection History of COVID-19 Sinus headache Gallbladder disease Allergies History of gastroesophageal reflux (GERD) Surgical History History of laparoscopic cholecystectomy Hx of tubal ligation Family History Other Family history of breast cancer in mother Family history of cancer Family history of colon cancer in father Family history of diabetes mellitus type II Family history of hypertension Family history of myocardial infarction Family history of sickle cell trait Family history of stroke Social History Smoking Status: Never smoker alcohol intake: never substance use type: denies use current occupational status: employed Travel in the last 8 weeks: None caffeine: No Have you lived/traveled outside [place] in past 30 days?: No Contact w/someone who lives/traveled outside [place] past 30 days?: No Exposure to someone with infectious disease in past 14 days?: No Do you have a fever (greater than 100.4 F or 38 C)?: No Have you tested positive for COVID-19: No Exposed to someone with COVID-19 in past 14 days?: No Do you have a sore throat?: No Do you have a cough?: No Do you have any weakness?: No Are you experiencing any nausea/vomitting?: No Do you have any diarrhea?: No Are you experiencing any unusual bleeding?: No Do you have any muscle aches/pain?: No Do you have any abdominal pain?: No Are you experiencing loss of taste or smell?: No Other Medical History Have you received the Pneumonia Vaccine: No Review of Systems Review of Systems Review of systems (narrative): Negative *Cardiovascular Comments: Negative *Gastrointestinal Comments: Negative *Genitourinary Comments: Negative *Musculoskeletal Comments: Negative *Neurologic Comments: Negative Meds Home Medications and Allergies Home Medications ?Medication ?Instructions ?Recorded ?Confirmed ?Type fluticasone propionate 50 1 spray intranasal DAILY #16 grams 10/06/22 10/02/24 Rx mcg/actuation nasal spray,suspension (Flonase Allergy Relief) cholecalciferol (vitamin D3) 50 50 mcg PO DAILY #90 caps 10/26/23 10/02/24 Rx mcg (2,000 unit) capsule ergocalciferol (vitamin D2) 1,250 1,250 mcg PO WEEKLY #14 caps 10/26/23 10/02/24 Rx mcg (50,000 unit) capsule mirabegron 25 mg tablet,extended 50 mg PO DAILY 05/07/24 10/02/24 History release 24 hr (Myrbetriq) hydroxyzine HCl 25 mg tablet 25 mg PO TID PRN per md 08/08/24 10/02/24 History sodium,potassium,mag sulfates 17.5 See Rx Instructions PO .COMPLEX 09/18/24 Rx gram-3.13 gram-1.6 gram oral soln #354 mL (Suprep Bowel Prep Kit) atorvastatin 10 mg tablet 10 mg PO DAILY 10/02/24 10/02/24 History sulfasalazine 500 mg tablet 500 mg PO DAILY 10/02/24 10/02/24 History New Prescriptions to Start Prescriptions: Allergies Allergy/AdvReac Type Severity Reaction Status Date / Time Penicillins Allergy Hives Verified 10/02/24 10:09 Exam Data for Last 24 hours Vital signs and Labs for Last 24 Hours: Temp Pulse Resp BP Pulse Ox O2 Del Method 97.4 F L 91 H 18 130/104 H 97 Room Air 10/02/24 10:22 10/02/24 10:22 10/02/24 10:22 10/02/24 10:22 10/02/24 10:22 10/02/24 10:22 Laboratory Results - last 24 hr 10/02/24 10:02: Urine HCG, Qual Negative I & O for Last 24 hours: Intake & Output 09/29/24 09/30/24 10/01/24 10/02/24 23:59 23:59 23:59 23:59 Weight 220 lb *Routine HEENT Exam Head: Present normocephalic Eye: Present EOMI and PERRL ENT: Present mucous membranes moist *Routine Neck Exam Neck: Present supple *Routine Respiratory Exam Respiratory: Present CTA bilaterally *Routine Cardiovascular Exam Cardiovascular: Present RRR *Routine Abdominal Exam Abdominal: Present soft and normoactive bowel sounds; Absent tenderness *Routine Rectal Exam Rectal:: deferred *Routine Genitalia Exam Genitalia:: deferred *Routine Extremities Exam Extremities: Absent cyanosis, clubbing or edema *Routine Skin Exam Skin: Present warm; Absent rash *Routine Neurological Exam Neurological: Present alert and oriented X3 Assessment and Plan *Assessment and plan (1) History of adenomatous polyp of colon: Status: Acute Category: Medical Code(s): Z86.0101 - Personal history of adenomatous and serrated colon polyps Plan A/P: 1. History of adenomatous colon polyp removed in July 2019 is the preprocedural diagnosis. The patient will be anesthetized/sedated using MAC sedation. The patient has been seen and examined. Cardiac and lung assessment prior to the examination is stable. Proceed with planned surveillance colonoscopy
--- NOTE | 2024-10-02 11:22 | P.PCN_ITS ---
[facility] Procedure Note Date: 10/02/24 Time: 11:37 Procedure Note:: Colonoscopy Procedure Report: Colonoscopy Endoscopist: Vladislav Dee II, MD Referring physician: Brenda Xavier PA-C Date of Procedure: October 02, 2024 Equipment: Olympus 190 variable stiffness pediatric colonoscope Sedation: MAC sedation Indication: Mrs. Montelongo is a 49-year-old female who is here for follow-up surveillance colonoscopy secondary to a personal history of an adenomatous colon polyp. She did have a colonoscopy in July 2019 and had a single adenomatous colon polyp removed. The patient reports no abdominal pain, weight loss, change in her bowel habits or rectal bleeding. She reports no family history of colon cancer. Procedure: Prior to the procedure, a history and physical exam was performed, and patient's medications and allergies were reviewed. The risks, benefits and alternatives of the sedation and procedure were discussed with the patient. All questions were answered and informed consent was obtained. The patient was brought to the procedure room. Patient identification and proposed procedure were verified by the physician and the nurse. The patient was placed in a left lateral decubitus position and the scope was passed under direct vision. Throughout the procedure, the patient's blood pressure, pulse, and oxygen saturations were monitored continuously. The colonoscopy was accomplished without difficulty. The patient tolerated the procedure well. Findings: On digital rectal examination there was normal rectal tone. There were no external hemorrhoids. The colonoscope was introduced through the anal canal to the rectum and advanced to the cecum. The ileocecal valve and appendiceal orifice were identified. The scope was advanced a short distance into the ileum which appeared grossly normal. The scope was then withdrawn into the colon. The cecum, ascending, transverse, descending, sigmoid and rectum were grossly normal. There were no mucosal abnormalities identified. Upon retroflexion within the rectum there were grade 1-2 internal hemorrhoids. There was some mild anorectal fibrosis at the pectinate line from prior hemorrhoid procedure. The preparation was excellent throughout with Gould Preparation Score of 9. The cecal time was 10 minutes. Impression: 1. Normal colonoscopy with intubation of the terminal ileum Plan: The patient will not require surveillance colonoscopy again for 10 years by ACS guidelines. I would encourage continued psyllium fiber supplementation on a maintenance basis.
[2024-10-02 11:23] VITALS: O2SAT 100
[2024-10-02 11:43] VITALS: BP 106/73; PULSE 102; RESP 16; TEMP 36.3; O2SAT 96
[2024-10-02 11:53] VITALS: BP 122/78; PULSE 94; RESP 18; O2SAT 98
[2024-10-02 12:03] VITALS: BP 122/82; PULSE 100; RESP 16; O2SAT 100
[2024-10-02 12:13] VITALS: BP 125/90; PULSE 100; RESP 18; O2SAT 100
== END 2024-10-02 12:15 | disposition home or self-care (01) ==
PROVIDERS: PCP Physician Assistant; Visit Provider Internal Medicine Gastroenterology
PROC: 0DJD8ZZ Inspection of Lower Intestinal Tract, Via Natural or Artificial Opening Endoscopic (ICD-10-PCS; CPT 45378; principal; 2024-10-02 11:00)
DX: K64.8 Other hemorrhoids (principal); Z86.0101 Personal history of adenomatous and serrated colon polyps
CPT/HCPCS: 45378; 81025; J7120